=== PATIENT | male | born 1980 ===

== ENCOUNTER 2020-09-28 07:48 | Emergency (ER) | payer OTHER ==
[~2020-09-28] VITALS: Ht 193 cm; Wt 102.3 kg
[2020-09-28 07:58] VITALS: TEMP 97.3
[2020-09-28] MEDS ORDERED: IBU600 MG PO (08:17)
[2020-09-28] MEDS ORDERED: MITIGARE0.6 MG PO (08:36)
[2020-09-28 08:59] VITALS: BP 123/71; PULSE 84
== END 2020-09-28 09:02 | disposition home or self-care (01) ==
LOC: COL.ER 07:48
DX: M79.674 Pain in right toe(s) (principal); Z88.2 Allergy status to sulfonamides

== ENCOUNTER 2023-11-29 08:18 | Inpatient (IN) | payer OTHER ==
[2023-11-29] VITALS (11 sets, daily range): BP systolic 108–120; BP diastolic 51–75; PULSE 68–87; TEMP 98–98.2
[~2023-11-29] VITALS: Ht 193 cm; Wt 100.0 kg
[~2023-11-29 08:18] MED LIST: IBU600 MG PO; MITIGARE0.6 MG PO
[2023-11-29] MEDS ORDERED: ZYRTEC 10MG10 MG PO (08:30)
[2023-11-29] MEDS ORDERED: GLUCOSAMIN 500 PO (08:30)
[2023-11-29 09:40] LABS: BASO % 0.4 % (0.0-2.0); EOS # 0.1 K/mm3 (0.0-0.7); EOS % 0.8 % (0.0-4.0); GRAN # 7.6 K/mm3 (1.4-6.5); GRAN % 73.8 % (42.2-75.2); HEMATOCRIT 43.1 % (42.0-52.0); HEMOGLOBIN 15.1 g/dl (13.5-18.0); LYMPH # 1.6 K/mm3 (1.2-3.4); LYMPH % 15.5 % (20.0-51.0); MEAN CELL VOLUME 88 fl (80.0-100.0); MEAN CORPUSCULAR HEMOGLOBIN 31 pg (27-31); MEAN CORPUSCULAR HGB CONC 35 g/dl (33.0-37.0); MEAN PLATELET VOLUME 9.9 fl (7.4-10.4); MONO % 9.2 % (1.7-9.3); PLATELET COUNT 183 K/mm3 (130-400); RED BLOOD COUNT 4.89 M/mm3 (4.20-5.60); REDCELL DISTRIBUTION WIDTH-CV 12.8 % (11.5-14.5)
[2023-11-29 09:51] LABS: ERYTHROCYTE SEDIMENTATION RATE 23 mm/hr (0-15)
[2023-11-29 10:51] LABS: SYNOVIAL FLUID APPEARANCE HAZY; SYNOVIAL FLUID COLOR YELLOW
[2023-11-29 12:00] LABS: SYNOVIAL FL. MONONUCLEAR 8.9 % (0-75); SYNOVIAL FLUID RBC 0 /mm3 (0-0)
[2023-11-29 12:04] LABS: SYNOVIAL FLUID WBC 33020 /mm3 (200-600)
[2023-11-29] MEDS ORDERED: Pantoprazole 40 MG in NS 10 ML IV SCH (12:40)
[2023-11-29] MEDS ORDERED: ceFAZolin 2 G in Water For Injection,Sterile 20 ML IV ONE (12:45)
[2023-11-29] MEDS ORDERED: Polyethylene Glycol 3350 17 GM PDS PO PRN (12:45)
[2023-11-29] MEDS ORDERED: Ondansetron 4 MG/2 ML VIAL IV ONE (12:45)
[2023-11-29] MEDS ORDERED: LR 1,000 ML IV ONE (12:45)
[2023-11-29] MEDS ORDERED: LR 1,000 ML IV SCH ×2 (12:45→18:45)
[2023-11-29] MEDS ORDERED: Ondansetron 4 MG/2 ML VIAL IV PRN ×2 (12:45→18:45)
[2023-11-29] MEDS ORDERED: Acetaminophen 500 MG TAB PO PRN (12:45)
[2023-11-29] MEDS ORDERED: Morphine 4 MG/ML VIAL IV ONE (12:45)
[2023-11-29] MEDS ORDERED: Docusate Sodium 100 MG CAP PO PRN (12:45)
[2023-11-29] MEDS ORDERED: Morphine 4 MG/ML VIAL IV PRN ×2 (13:00→19:45)
[2023-11-29] MEDS ORDERED: oxyCODONE 5 MG TAB PO PRN ×2 (13:00→19:45)
[2023-11-29] MEDS ORDERED: Doxycycline Hyclate 100 MG in NS 150 ML IV SCH (13:00)
--- NOTE | 2023-11-29 16:00 | NUR ---
Pt arrived recently. Pt has significant pain to the left knee. Left knee is slightly swollen. Pt does have IVF infusing and antibiotics. Family at bedside. Dr Dunn has been in to see pt, plan for surgery later this evening. Pt aware that he cannot have anything to eat or drink. Oriented pt and family to the room. All questions answered, call light within reach
[2023-11-29] MEDS ORDERED: Midazolam 2 MG/2 ML VIAL ONE (18:40)
[2023-11-29] MEDS ORDERED: fentaNYL 50 MCG/ML 2 ML VIAL ONE ×2 (18:40→20:24)
[2023-11-29] MEDS ORDERED: NS 10 ML IV ONE ×2 (18:42→18:47)
[2023-11-29] MEDS ORDERED: fentaNYL 50 MCG/ML 1 ML SYRINGE/VIAL [PACU/SDC ONLY] IV PRN (18:45)
[2023-11-29] MEDS ORDERED: hydrALAZINE 20 MG/ML 1 ML VIAL IV PRN (18:45)
[2023-11-29] MEDS ORDERED: Meperidine 50 MG/ML 1 ML VIAL IV PRN (18:45)
[2023-11-29] MEDS ORDERED: HYDROmorphone 1 MG/1 ML SYRINGE [PACU/SDC ONLY] IV PRN (18:45)
--- NOTE | 2023-11-29 19:29 | NUR ---
Pt off the floor for surgery. GRACE Choi stated she would give LR and pepcid. Sent blank consent down as there is not an order for one at this time. Preop checklist completed as much as possible
[2023-11-29] MEDS ORDERED: Succinylcholine PF 200 MG/10 ML SYRINGE IV ONE (19:38)
[2023-11-29] MEDS ORDERED: Ketorolac 15 MG/ML VIAL IV SCH (19:45)
[2023-11-29] MEDS ORDERED: Naloxone 0.4 MG/ML VIAL IV PRN (19:45)
[2023-11-29] MEDS ORDERED: dexAMETHasone 4 MG/ML VIAL IJ ONE (20:30)
[2023-11-29] MEDS ORDERED: Acetaminophen 500 MG TAB PO SCH (20:42)
[2023-11-29] MEDS ORDERED: [UNRECOGNIZED DRUG - REMARK] PO SCH (20:52)
[2023-11-29] MEDS ORDERED: ceFAZolin 2 G in Water For Injection,Sterile 20 ML IV SCH (21:00)
--- NOTE | 2023-11-29 21:30 | NUR ---
PT RETURNED TO ROOM 330 FROM PACU PER BED, AWAKE AND ALERT, LR INFUSING PER PIV IN LAC, PT ARRIVED ON RA, BUT SATS <90%, PLACED ON 2L O2 PER NC. DRESSING TO LEFT KNEE CDI WITH ICE PACK IN PLACE, CMS INTACT TO LLE. PT DENIES ANY PAIN AT THIS TIME, AT BEDSIDE. PT ASKING FOR FOOD AND SOMETHING TO DRINK, SANDWICH BOX AND ICE WATER GIVEN, TOLERATED W/O N/V.
[2023-11-30] VITALS (13 sets, daily range): BP systolic 101–124; BP diastolic 61–76; PULSE 64–76; TEMP 97.4–98.2
[2023-11-30] MEDS ORDERED: Ketorolac 15 MG/ML VIAL IV SCH ×2 (02:30→04:30)
[2023-11-30] MEDS ORDERED: ceFAZolin 2 G in Water For Injection,Sterile 20 ML IV SCH ×2 (02:45→04:00)
[2023-11-30 05:43] LABS: BASO % 0.1 % (0.0-2.0); EOS % 0.2 % (0.0-4.0); GRAN # 8.2 K/mm3 (1.4-6.5); GRAN % 86.6 % (42.2-75.2); HEMATOCRIT 40.2 % (42.0-52.0); HEMOGLOBIN 13.8 g/dl (13.5-18.0); LYMPH % 10.3 % (20.0-51.0); MEAN CELL VOLUME 89 fl (80.0-100.0); MEAN CORPUSCULAR HEMOGLOBIN 31 pg (27-31); MEAN CORPUSCULAR HGB CONC 34 g/dl (33.0-37.0); MEAN PLATELET VOLUME 10.4 fl (7.4-10.4); MONO # 0.2 K/mm3 (0.1-0.6); MONO % 2.2 % (1.7-9.3); PLATELET COUNT 185 K/mm3 (130-400); REDCELL DISTRIBUTION WIDTH-CV 12.8 % (11.5-14.5)
[2023-11-30 05:58] LABS: C-REACTIVE PROTEIN 9.68 mg/dL (0.00-0.50); CALCIUM 8.5 mg/dL (8.4-10.2); CREATININE, serum 1.17 mg/dL (0.72-1.25); POTASSIUM 4.4 mEq/L (3.5-4.5)
--- NOTE | 2023-11-30 09:58 | NUR ---
Patient resting in bed. His supportive family at bedside. He ambulated hallways with therapy using crutches. He did well, but did report slight nausea. Denies the need for zofran at this time. He reports he had not been upright since surgery, but nausea resolving on its own. He did well with breakfast. Minimal pain, 08/28. Reports overall very improved and manged well with scheduled toradol & tylenol. Left knee with dressing and carissa wrap intact. Will monitor
--- NOTE | 2023-11-30 10:54 | NUR ---
Patient resting in bed. Denies needs at this time
--- NOTE | 2023-11-30 11:24 | NUR ---
patient up ambulating halls with crutches. at his side
--- NOTE | 2023-11-30 12:20 | NUR ---
case management social worker met with patient and at bedside to complete discharge planning. Patient is active at [facility] and is normally independent with all activities. Patient and Esther ([phone]) live in [place], patient utilizes [facility] for his medical needs and [facility] provides medications. Patient has crutches in room for ambulation after surgery. Plan is to return home. Discharge plan: Home
--- NOTE | 2023-11-30 13:31 | NUR ---
Patient family bringing lunch. New IV to [facility] reported pain at prior IV site with antibioitcs. Bedside report to Karma to resume cares
--- NOTE | 2023-11-30 13:48 | NUR ---
Data: Patient declined [employer] Supervisor visit offered during [employer] Supervisor rounds. Assessment: None Plan of Care: [facility]plains will remain available as requested while Patient is admitted to this hospital.
--- NOTE | 2023-11-30 15:24 | NUR ---
PATIENT ALERT AND ORIENTED X4. VSS. PATIENT HERE FOR LEFT SEPTIC KNEE, I&D OF LEFT KNEE. PATIENT REPORTS PAIN /, SCHEDULED TYLENOL AND TORADOL ADMINISTERED. IV TO RIGHT FA WITH LR RUNNING AT 150 AND DOXYCYCLINE INFUSING. PATIENT RESTING IN BED, TOLERATING PO. NO FURTHER NEEDS. CALL LIGHT IN REACH.
[2023-12-01 03:29] VITALS: BP 148/81; PULSE 64; TEMP 97.9
[2023-12-01 04:05] VITALS: BP_SYST 148
[2023-12-01 07:30] VITALS: BP_SYST 148
[2023-12-01 07:38] LABS: BASO % 0.2 % (0.0-2.0); EOS % 0.1 % (0.0-4.0); GRAN # 9.9 K/mm3 (1.4-6.5); GRAN % 77.2 % (42.2-75.2); HEMOGLOBIN 12.6 g/dl (13.5-18.0); LYMPH % 15.9 % (20.0-51.0); MEAN CELL VOLUME 89 fl (80.0-100.0); MEAN CORPUSCULAR HEMOGLOBIN 31 pg (27-31); MEAN CORPUSCULAR HGB CONC 35 g/dl (33.0-37.0); MEAN PLATELET VOLUME 10.2 fl (7.4-10.4); MONO # 0.8 K/mm3 (0.1-0.6); MONO % 5.9 % (1.7-9.3); PLATELET COUNT 179 K/mm3 (130-400); RED BLOOD COUNT 4.09 M/mm3 (4.20-5.60)
[2023-12-01 07:53] LABS: HEMATOCRIT 36.3 % (42.0-52.0)
[2023-12-01 07:56] LABS: C-REACTIVE PROTEIN 4.41 mg/dL (0.00-0.50); CALCIUM 8.3 mg/dL (8.4-10.2); CREATININE, serum 1.02 mg/dL (0.72-1.25)
[2023-12-01 12:05] VITALS: BP 134/79; PULSE 67; TEMP 98.4
[2023-12-01] MEDS ORDERED: INDOCIN 25MG CA25 MG PO (12:14)
--- NOTE | 2023-12-01 12:19 | NUR ---
ELIZABETH notified by attending of discharge to home today. Patient requiring OP PT. Met with patient and in room. Patient stated he does not have a preference for OP PT but does not want it to be on post at [facility] due to delay in scheduling. Discussed with attending. SW returned to room to discuss locations of OP therapy providers. Surgeon in room and stated patient does not require OP therapy and patient will follow up in his office later this week.
[2023-12-01] MEDS ORDERED: CEPHALEXIN500 M1 PO (12:34)
--- NOTE | 2023-12-01 12:36 | NUR ---
Pt has two sites with sutures to his knee. Both are well approximated with no redness or drainage noted. Aquacel placed per physician order. Dr Dunn informed pt that he does not need therapy, to follow up with him in the office and would then order if necessary.
--- NOTE | 2023-12-01 13:14 | NUR ---
Reviewed discharge instructions with pt and spouse. Reviewed prescriptions and calling tomorrow to make follow up appointment. INT was removed in right forearm at earlier time. Pt escorted out by myself at this time. Pt did refuse wheelchair upon discharge.
[2023-12-03] MEDS ORDERED: Ibuprofen 600 MG TAB PO SCH (01:45)
[2023-12-03] MEDS ORDERED: Indomethacin 25 MG CAP PO SCH (09:00)
[2023-12-05] MEDS ORDERED: Indomethacin 25 MG CAP PO SCH (14:00)
== END 2023-12-01 13:15 | disposition home or self-care (01) | DRG 550 ==
LOC: COL.ER 08:18 → SURG 12:42
PROVIDERS: Family Medicine; Orthopaedic Surgery; ADMIT Internal Medicine
PROC: 0S9D4ZX Drainage of Left Knee Joint, Percutaneous Endoscopic Approach, Diagnostic (ICD-10-PCS; 2023-11-29)
PROC: 0S9D3ZX Drainage of Left Knee Joint, Percutaneous Approach, Diagnostic (ICD-10-PCS; principal; 2023-11-29 20:00)
DX: M00.9 Pyogenic arthritis, unspecified (principal); M10.062 Idiopathic gout, left knee; M19.90 Unspecified osteoarthritis, unspecified site; M25.462 Effusion, left knee; K21.9 Gastro-esophageal reflux disease without esophagitis; J30.2 Other seasonal allergic rhinitis; Z88.2 Allergy status to sulfonamides; Z88.8 Allergy status to other drugs, medicaments and biological substances; Z79.899 Other long term (current) drug therapy; Z23 Encounter for immunization
CPT/HCPCS: C9113; J0665; J0690; J1100; J1885; J2250; J2270; J2405; J2704; J3010; J7120